=== PATIENT | female | born 1975 | race Caucasian/White ===

== ENCOUNTER 2016-12-05 01:08 | Emergency (ER) | payer SELFPAY ==
[2016-12-05] MEDS ORDERED: Diphtheria,Pertussis(Acell),Tetanus Vaccine 0.5 ML Syringe IM ONE (01:32)
[2016-12-05] MEDS ORDERED: Lidocaine 1% with EPINEPHrine 1:100,000 20 ML MDV INJECT ONE (01:36)
--- NOTE | 2016-12-05 01:36 | EDM.PDOC ---
ED HPI GENERAL MEDICAL PROBLEM - General Chief Complaint: Laceration Stated Complaint: "I cut my arm" Time Seen by Provider: 12/05/16 01:32 Source of Information: Reports: Patient History Limitations: Reports: No Limitations - History of Present Illness INITIAL COMMENTS - FREE TEXT/NARRATIVE: This patient is a 41 year old female that presents to the ER. Patient reports that she was closing window when her her left arm went through the window. She reprots the glass shattered and glass cut her left forearm. The patient denies any other injury. Patient has a laceration to the left forearm. The patient pulses +2, cap refill <2 sec, sensory/motor function intact. Neurovascular intact. I have ordered an xray to check for FBs. I will repair. 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) Severity: Mild Improves with: Reports: None Worsens with: Reports: None Associated Symptoms: Denies: Confusion, Chest Pain, Cough, cough w sputum, Diaphoresis, Fever/Chills, Headaches, Loss of Appetite, Malaise, Nausea/Vomiting , Rash, Seizure, Shortness of Breath, Syncope, Weakness - Related Data Allergies Allergy/AdvReac Type Severity Reaction Status Date / Time Penicillins Allergy Intermediate Hives Verified 12/05/16 01:25 Home Meds: Home Meds Venlafaxine [Effexor] 300 mg PO BID 05/05/14 [History] Albuterol [Proventil Neb Soln] 0.63 mg NEB Q4HRRT PRN 08/04/16 [History] Past Medical History - Past Health History Medical/Surgical History: Denies Medical/Surgical History Psychiatric History: Reports: Depression - Past Surgical History HEENT Surgical History: Reports: Other (See Below) Female Surgical History: Reports: Section Social & Family History - Family History Cardiac: Reports: Hypertension - Tobacco Use Smoking Status *Q: Current Every Day Smoker Years of Tobacco use: 15 Packs/Tins Daily: 0.5 Used Tobacco, but Quit: No - Alcohol Use Days Per Week of Alcohol Use: 2 - Recreational Drug Use Recreational Drug Use: No - Living Situation & Occupation Living situation: Reports: with Family ED ROS GENERAL - Review of Systems Review Of Systems: See Below Constitutional: Reports: No Symptoms HEENT: Reports: No Symptoms Respiratory: Reports: No Symptoms Cardiovascular: Reports: No Symptoms Endocrine: Reports: No Symptoms GI/Abdominal: Reports: No Symptoms : Reports: No Symptoms Musculoskeletal: Reports: No Symptoms Skin: Reports: Wound (laceration left forearm) Neurological: Reports: No Symptoms Psychiatric: Reports: No Symptoms Hematologic/Lymphatic: Reports: No Symptoms Immunologic: Reports: No Symptoms ED EXAM, SKIN/RASH Exam: See Below Exam Limited By: No Limitations General Appearance: Alert, WD/WN, No Apparent Distress Nose: Normal Inspection Head: Atraumatic, Normocephalic Cardiovascular: Normal Peripheral Pulses Peripheral Pulses: 2+: Radial (L), Radial (R) Extremities: Normal Range of Motion, No Pedal Edema, Normal Capillary Refill, Other (mild tenderness left forearm at laceration site.) Neurological: Alert, Oriented Psychiatric: Normal Affect, Normal Mood Skin: Warm, Dry, Normal Color, No Rash, Wound/Incision (laceration left forearm bleeding controlled. ) Location, Skin: Upper Extremity, Left ED SKIN PROCEDURES - Laceration/Wound Repair Left Distal Arm Lac/wound length in cm: 5 Appearance: subcutaneous Distal NVT: neuro & vascular intact, no tendon injury Local anesthesia - Lidocaine (Xylocaine): 1% with epi Local anesthetic volume: 5cc Skin prep: chlorhexidine (hibiciens) Saline irrigation (cc's): 40 Exploration/Debridement/Repair: wound explored, in a bloodless field, explored to base, no foreign material found Closed with: sutures Suture size: 4-0 # of sutures: 9 Suture type: silk Tetanus status addressed: Yes Complications: No Course - Vital Signs Last Recorded V/S: Last Vital Signs Temp 97.7 F 12/05/16 02:11 Pulse 88 12/05/16 02:11 Resp 20 12/05/16 02:11 BP 135/74 12/05/16 02:11 Pulse Ox 95 12/05/16 02:11 - Orders/Labs/Meds Orders: Active Orders 24 hr Category Date Time Status Vaccines to be Administered [RC] PER UNIT ROUTINE Care 12/05/16 01:32 Active Forearm 2V Lt [CR] Stat Exams 12/05/16 01:32 Taken Meds: Medications Discontinued Medications Generic Name Dose Route Start Last Admin Trade Name Freq PRN Reason Stop Dose Admin Diphtheria/Tetanus/Acell Pertussis 0.5 ml 12/05/16 01:32 12/05/16 01:59 Adacel IM 12/05/16 01:33 0.5 ml .ONCE ONE Administration Lidocaine/Epinephrine 20 ml 12/05/16 01:36 12/05/16 01:59 Xylocaine 1% With Epinephrine 1:100,000 INJECT 12/05/16 01:37 20 ml ONETIME ONE Administration - Radiology Interpretation Free Text/Narrative:: Right Forearm: No radiopaque FB seen. No fx, no dislocation Departure - Departure Time of Disposition: 02:00 Disposition: Home, Self-Care 01 Condition: good Clinical Impression: Laceration - Discharge Information Instructions: Laceration Care, Adult, [id number] Forms: ED Department Discharge Additional Instructions: Followup with your primary care provider in 7 for days for wound recheck and removal of stitches Return to the ER for worsening of condition or any emergent concerns such as redness, heat, drainage, fever, infection Wash the area gently with soap and water, rinse, pat yudelka. Keep clean - My Orders Last 24 Hours: My Active Orders 12/05/16 01:32 Vaccines to be Administered [RC] PER UNIT ROUTINE Forearm 2V Lt [CR] Stat - Assessment/Plan Last 24 Hours: My Active Orders 12/05/16 01:32 Vaccines to be Administered [RC] PER UNIT ROUTINE Forearm 2V Lt [CR] Stat Plan: PLEASE SEE RN NOTE FOR PFSH.
[2016-12-05 02:13] VITALS: BP 135/74
== END 2016-12-05 02:30 | disposition home or self-care (01) ==
LOC: CC.ED 01:08
DX: S51.812A Laceration without foreign body of left forearm, initial encounter (principal); F32.9 Major depressive disorder, single episode, unspecified; F17.210 Nicotine dependence, cigarettes, uncomplicated; W25.XXXA Contact with sharp glass, initial encounter; Z88.0 Allergy status to penicillin
CPT/HCPCS: 12002; 73090-LT; 90471; 90715; 99283

== ENCOUNTER 2017-04-12 18:50 | Emergency (ER) | payer SELFPAY ==
[2017-04-12 19:02] VITALS: BP 131/88
== END 2017-04-12 19:00 | disposition left against medical advice (07) ==
LOC: CC.ED 18:50
DX: Z53.21 Procedure and treatment not carried out due to patient leaving prior to being seen by health care provider (principal)

== ENCOUNTER 2017-05-27 23:59 | Emergency (ER) | payer SELFPAY ==
[2017-05-28 00:03] VITALS: BP 143/90
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
[2017-05-28] MEDS ORDERED: Ibuprofen 200 MG Tab PO ONE (00:59)
== END 2017-05-28 01:10 | disposition home or self-care (01) ==
LOC: CC.ED 23:59
DX: S06.0X0A Concussion without loss of consciousness, initial encounter (principal); S00.03XA Contusion of scalp, initial encounter; F32.9 Major depressive disorder, single episode, unspecified; F17.210 Nicotine dependence, cigarettes, uncomplicated; Z88.0 Allergy status to penicillin; Y04.2XXA Assault by strike against or bumped into by another person, initial encounter; Y92.89 Other specified places as the place of occurrence of the external cause
CPT/HCPCS: 70450; 99283; A9270

== ENCOUNTER 2017-09-06 19:50 | Emergency (ER) | payer SELFPAY ==
[2017-09-06 20:03] VITALS: BP 129/92
--- NOTE | 2017-09-06 20:10 | EDM.PDOC ---
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 Patient reports she was seen in clinic earlier this afternoon. She reports having a urine done that shows UTI. Patient reports that she has had dysuria for 2 days. Patient reports she has vaginal burning and swelling sensation. She reports last time she had her UTI, she got herpes outbreak. She reports it feels like herpes outbreak is starting. She denies current sores, discharge, bleeding. Denies catalan, dizziness, n, v, d, f, abd pain, back pain, cva pain, pelvic pain. Onset Date: 09/04/17 Duration: Day(s): (2) Quality: Reports: Burning Severity: Mild Improves with: Reports: None Worsens with: Reports: None Associated Symptoms: Reports: No Other Symptoms. Denies: Confusion, Chest Pain , Cough, cough w sputum, Diaphoresis, Fever/Chills, Headaches, Loss of Appetite , Malaise, Nausea/Vomiting, Rash, Seizure, Shortness of Breath, Syncope, Weakness Vaginal Pain Score (Numeric/FACES): 5 - Related Data Allergies Allergy/AdvReac Type Severity Reaction Status Date / Time Penicillins Allergy Intermediate Hives Verified 09/06/17 19:52 Home Meds: Home Meds Venlafaxine [Effexor] 300 mg PO DAILY 05/05/14 [History] Albuterol [Proventil Neb Soln] 0.63 mg NEB Q4HRRT PRN 08/04/16 [History] buPROPion [Wellbutrin] 75 mg PO BID 05/28/17 [History] Levonorgestrel [Mirena] 1 unit IMPLANT ASDIRECTED 09/06/17 [History] Sulfamethoxazole/Trimethoprim [Bactrim Ds Tablet] 1 tab PO BID 09/06/17 [History ] Past Medical History - Past Health History Medical/Surgical History: Denies Medical/Surgical History Neurological History: Reports: Concussion Psychiatric History: Reports: Depression - Past Surgical History HEENT Surgical History: Reports: Other (See Below) Female Surgical History: Reports: Section Social & Family History - Family History Cardiac: Reports: Hypertension - Tobacco Use Smoking Status *Q: Current Every Day Smoker Years of Tobacco use: 20 Packs/Tins Daily: 0.5 Used Tobacco, but Quit: No - Alcohol Use Days Per Week of Alcohol Use: 2 - Recreational Drug Use Recreational Drug Use: No - Living Situation & Occupation Living situation: Reports: with Family ED ROS GENERAL - Review of Systems Review Of Systems: See Below Constitutional: Reports: No Symptoms HEENT: Reports: No Symptoms Respiratory: Reports: No Symptoms Cardiovascular: Reports: No Symptoms Endocrine: Reports: No Symptoms GI/Abdominal: Reports: No Symptoms : Reports: Dysuria, Pain (vaginal burning). Denies: Flank Pain Musculoskeletal: Reports: No Symptoms Skin: Reports: No Symptoms Neurological: Reports: No Symptoms Psychiatric: Reports: No Symptoms Hematologic/Lymphatic: Reports: No Symptoms Immunologic: Reports: No Symptoms ED EXAM, GI/ABD - Physical Exam Exam: See Below Exam Limited By: No Limitations General Appearance: Alert, WD/WN, No Apparent Distress Eyes: Bilateral: Normal Appearance Respiratory/Chest: No Respiratory Distress, Lungs Clear, Normal Breath Sounds, No Accessory Muscle Use Cardiovascular: Normal Peripheral Pulses, Regular Rate, Rhythm, No Edema, No Gallop, No JVD, No Murmur, No Rub GI/Abdominal Exam: Normal Bowel Sounds, Soft, Non-Tender, No Organomegaly, No Distention, No Abnormal Bruit, No Mass, Pelvis Stable (Female) Exam: Deferred Rectal (Female) Exam: Deferred Back Exam: Normal Inspection, Full Range of Motion. No: CVA Tenderness (L), CVA Tenderness (R) Extremities: Normal Inspection, Normal Capillary Refill Neurological: Alert, Oriented Psychiatric: Normal Affect, Normal Mood Skin Exam: Warm, Dry, Intact, Normal Color, No Rash Lymphatic: No Adenopathy Course - Vital Signs Last Recorded V/S: Last Vital Signs Temp 97.2 F 09/06/17 19:54 Pulse 113 H 09/06/17 20:02 Resp 16 09/06/17 19:54 BP 129/92 H 09/06/17 20:02 Pulse Ox 97 09/06/17 19:54 Departure - Departure Time of Disposition: 20:09 Disposition: Home, Self-Care 01 Condition: Good Clinical Impression: Herpes genitalis in women - Discharge Information Instructions: Genital Herpes Referrals: Nella Burgos PA [Primary Care Provider] - Additional Instructions: Followup with your primary care provider Return to the ER for worsening of condition or any emergent concerns Increase fluids Acylcovir 400mg 1 pill three times a day for 10 days #30 no refill - Assessment/Plan Plan: PLEASE SEE RN NOTE FOR PFSH.
[2017-09-06] MEDS ORDERED: Acyclovir 200 MG Cap PO ONE (20:14)
== END 2017-09-06 20:25 | disposition home or self-care (01) ==
LOC: CC.ED 19:50
DX: A60.00 Herpesviral infection of urogenital system, unspecified (principal); F17.210 Nicotine dependence, cigarettes, uncomplicated; Z88.0 Allergy status to penicillin; Z79.899 Other long term (current) drug therapy
CPT/HCPCS: 99282; A9270

== ENCOUNTER 2017-11-09 17:32 | Emergency (ER) | payer SELFPAY ==
[2017-11-09] MEDS ORDERED: Clindamycin HCl 150 MG Cap PO ONE (17:33)
[2017-11-09 17:37] VITALS: BP 159/77
--- NOTE | 2017-11-09 17:38 | EDM.PDOC ---
ED HPI GENERAL MEDICAL PROBLEM - General Chief Complaint: ENT Problem Stated Complaint: toothache Time Seen by Provider: 11/09/17 17:38 Source of Information: Reports: Patient History Limitations: Reports: No Limitations - History of Present Illness INITIAL COMMENTS - FREE TEXT/NARRATIVE: This patient is a 42 year old female that presents to the ER. Patient reports that started yesterday she had worsening of right lower frontal dental pain. Patient reports she is scheduled to have the tooth extracted on . Patient denies catalan, dizziness, n, v, d, f. No trismus. Stable. Onset Date: 11/08/17 Duration: Day(s): (1) Quality: Reports: Ache Severity: Mild Improves with: Reports: None Worsens with: Reports: None Associated Symptoms: Reports: No Other Symptoms. 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 Right Lower Oral/Mouth Pain Score (Numeric/FACES): 5 - Related Data Allergies Allergy/AdvReac Type Severity Reaction Status Date / Time Penicillins Allergy Intermediate Hives Verified 11/09/17 17:37 Home Meds: Home Meds Venlafaxine [Effexor] 300 mg PO DAILY 05/05/14 [History] Albuterol [Proventil Neb Soln] 0.63 mg NEB Q4HRRT PRN 08/04/16 [History] buPROPion [Wellbutrin] 75 mg PO BID 05/28/17 [History] Levonorgestrel [Mirena] 1 unit IMPLANT ASDIRECTED 09/06/17 [History] Past Medical History - Past Health History Medical/Surgical History: Denies Medical/Surgical History Respiratory History: Reports: Asthma Gastrointestinal History: Reports: GERD 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 History: Reports: STD, UTI, Recurrent, Other (See Below) Other 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 History: herpes 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: Musculoskeletal History: Reports: Fracture, Other (See Below) Other Musculoskeletal History: right orbital fracture Neurological History: Reports: Concussion Psychiatric History: Reports: Depression - Infectious Disease History Infectious Disease History: Reports: Chicken Pox - Past Surgical History HEENT Surgical History: Reports: Other (See Below) Female Surgical History: Reports: Section Social & Family History - Family History Family Medical History: Noncontributory Cardiac: Reports: Hypertension - Tobacco Use Smoking Status *Q: Current Every Day Smoker Years of Tobacco use: 20 Packs/Tins Daily: 0.5 Used Tobacco, but Quit: No - Alcohol Use Days Per Week of Alcohol Use: 2 - Recreational Drug Use Recreational Drug Use: No - Living Situation & Occupation Living situation: Reports: with Family ED ROS ENT - Review of Systems Review Of Systems: See Below Constitutional: Reports: No Symptoms HEENT: Reports: Dental Pain (right lower front) Respiratory: Reports: No Symptoms Cardiovascular: Reports: No Symptoms Endocrine: Reports: No Symptoms GI/Abdominal: Reports: No Symptoms : Reports: No Symptoms Musculoskeletal: Reports: No Symptoms Skin: Reports: No Symptoms Neurological: Reports: No Symptoms Psychiatric: Reports: No Symptoms Hematologic/Lymphatic: Reports: No Symptoms Immunologic: Reports: No Symptoms ED EXAM, ENT - Physical Exam Exam: See Below Exam Limited By: No Limitations General Appearance: Alert, WD/WN, No Apparent Distress Eye Exam: Bilateral Eye: Normal Inspection Ears: Normal External Exam, Normal Canal, Hearing Grossly Normal, Normal TMs Nose: Normal Inspection, Normal Mucousa, No Blood Mouth/Throat: Normal Gums, Normal Lips, Normal Oropharynx, Dental Pain (right lower front), Dental Tenderness (right lower front), Other (No facial swelling. No erry). No: Dental Abcess, Dental Trauma, Drooling, Dry Mucous Membrane, Gum Swelling, Hoarse Voice, Lip Swelling, Lip Ulcers, Muffled Voice, Oral Ulcers, Perioral Cyanosis, Pharyngeal Erythema, Throat Pain, Throat Swelling, Tongue Swelling, Tonsillar Erythema, Tonsillar Exudates, Tonsillar Swelling, Trismus, Uvular Deviation, Uvular Edema Head: Atraumatic, Normocephalic Neck: Normal Inspection, Supple, Non-Tender, Full Range of Motion Respiratory/Chest: No Respiratory Distress, Lungs Clear, Normal Breath Sounds, No Accessory Muscle Use Cardiovascular: Normal Peripheral Pulses, Regular Rate, Rhythm, No Edema, No Gallop, No JVD, No Murmur, No Rub (Female) Exam: Deferred Rectal (Female) Exam: Deferred Extremities: Normal Inspection Neurological: Alert, Oriented Psychiatric: Normal Affect, Normal Mood Skin: Warm, Dry, Intact, Normal Color, No Rash Lymphatic: No Adenopathy Course - Vital Signs Last Recorded V/S: Last Vital Signs Temp 98.5 F 11/09/17 17:33 Pulse 110 H 11/09/17 17:33 Resp 16 11/09/17 17:33 BP 159/77 H 11/09/17 17:33 Pulse Ox 97 11/09/17 17:33 - Orders/Labs/Meds Meds: Medications Discontinued Medications Generic Name Dose Route Start Last Admin Trade Name German PRN Reason Stop Dose Admin Clindamycin HCl 2 packet 11/09/17 17:42 Take Home: Clindamycin Hcl 150 Mg, 6 Cap Pack PO 11/09/17 17:43 ONETIME ONE Departure - Departure Time of Disposition: 17:43 Disposition: Home, Self-Care 01 Condition: Good Clinical Impression: Pain due to dental caries - Discharge Information Instructions: Dental Caries, Pediatric Referrals: Nella Burgos PA [Primary Care Provider] - Forms: ED Department Discharge Additional Instructions: Followup with dentist as scheduled Return to the ER for worsening of condition or any emergent concerns Ice to the area Clindamycin 150mg 2 pills four times a day #12 take home. Then... Clindamycin 300mg 1 pill four times a day for 5 days #20 no refill - Assessment/Plan Plan: PLEASE SEE RN NOTE FOR PFSH.
[2017-11-09] MEDS: Take Home: Clindamycin HCl 150 MG Cap, 6 Cap Pack PO ONE (17:57)
== END 2017-11-09 18:00 | disposition home or self-care (01) ==
LOC: CC.ED 17:32
DX: K02.9 Dental caries, unspecified (principal); F17.210 Nicotine dependence, cigarettes, uncomplicated; Z88.0 Allergy status to penicillin; Z79.899 Other long term (current) drug therapy
CPT/HCPCS: 99282; A9270

== ENCOUNTER 2018-04-20 02:26 | Emergency (ER) | payer BC ==
[2018-04-20] MEDS ORDERED: Sodium Chloride 0.9% 1,000 ML IV ONE ×2 (02:39→03:49)
--- NOTE | 2018-04-20 02:40 | EDM.PDOC ---
ED HPI GENERAL MEDICAL PROBLEM - General Chief Complaint: General Stated Complaint: Abdominal cramping, shortness of breath Time Seen by Provider: 04/20/18 02:30 Source of Information: Reports: Patient History Limitations: Reports: Intoxication - History of Present Illness INITIAL COMMENTS - FREE TEXT/NARRATIVE: Patient reports she had been experiencing mild, intermittent abdominal pain for approx one month. Tonight the patient went drinking with a friend who convinced the patient to take a test (at 0200) which was inconclusive. This caused the patient to become anxious as she was concerned about potential damage due to her intoxication which. This anxiety caused her to feel short of breath at which point she went to the ER. Onset: Today Location: Reports: Abdomen Quality: Reports: Ache Severity: Mild Improves with: Reports: None Worsens with: Reports: None Associated Symptoms: Reports: Other (diarrhea). Denies: Diaphoresis, Fever/ Chills, Nausea/Vomiting Lower Abdominal Pain Score (Numeric/FACES): 5 - Related Data Allergies Allergy/AdvReac Type Severity Reaction Status Date / Time Penicillins Allergy Intermediate Hives Verified 04/20/18 02:35 Home Meds: Home Meds Venlafaxine [Effexor] 300 mg PO DAILY 05/05/14 [History] Albuterol [Proventil Neb Soln] 0.63 mg NEB Q4HRRT PRN 08/04/16 [History] buPROPion [Wellbutrin SR] 300 mg PO DAILY 04/20/18 [History] Past Medical History - Past Health History Medical/Surgical History: Denies Medical/Surgical History HEENT History: Reports: Other (See Below) Other HEENT History: "bad teeth" has dental extraction scheduled for this Respiratory History: Reports: Asthma Gastrointestinal History: Reports: GERD 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 History: Reports: STD, UTI, Recurrent, Other (See Below) Other 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 History: herpes 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: Musculoskeletal History: Reports: Fracture, Other (See Below) Other Musculoskeletal History: right orbital fracture Neurological History: Reports: Concussion Psychiatric History: Reports: Depression - Infectious Disease History Infectious Disease History: Reports: Chicken Pox - Past Surgical History HEENT Surgical History: Reports: Other (See Below) Female Surgical History: Reports: Section Social & Family History - Family History Family Medical History: Noncontributory Cardiac: Reports: Hypertension - Living Situation & Occupation Living situation: Reports: with Family ED ROS GENERAL - Review of Systems Review Of Systems: See Below Constitutional: Denies: Fever, Chills Respiratory: Reports: Shortness of Breath Cardiovascular: Denies: Chest Pain, Syncope GI/Abdominal: Reports: Abdominal Pain, Diarrhea. Denies: Black Stool, Bloody Stool, Melena, Nausea, Vomiting : Denies: Discharge, Dysuria, Flank Pain Musculoskeletal: Denies: Neck Pain Psychiatric: Reports: Anxiety ED EXAM, GENERAL - Physical Exam Exam: See Below Exam Limited By: Other (patient is acutely intoxicated, requires multiple prompts to answer basic questions; ie "do you have burning with urination?" to which the patient reports "I've had a bunch of UTI's in the past" etc.) General Appearance: Alert, WD/WN, No Apparent Distress, Anxious Eye Exam: Bilateral Eye: Nystagmus, Other (glassy, bloodshot) Ears: Hearing Grossly Normal Throat/Mouth: Normal Oropharynx Head: Atraumatic Neck: Non-Tender, Full Range of Motion Respiratory/Chest: No Respiratory Distress, Lungs Clear, No Accessory Muscle Use , Chest Non-Tender Cardiovascular: Normal Peripheral Pulses, No Edema, Tachycardia Peripheral Pulses: 2+: Radial (L), Radial (R) GI/Abdominal: Normal Bowel Sounds, Soft, No Distention, Other (TTP RLQ, LLQ, suprapubic) Extremities: Normal Inspection, Normal Capillary Refill Neurological: Alert, Other (unable to fully comply with neuro exam. noted biletaral nystagmus. speech is slightly slurred. requires multple prompts and redirects to answer simple questions.) Psychiatric: Anxious, Other (slurred speech) Skin Exam: Warm, Dry, Intact Lymphatic: No Adenopathy Course - Vital Signs Last Recorded V/S: Last Vital Signs Temp 37.0 C 04/20/18 06:45 Pulse 107 H 04/20/18 06:45 Resp 18 04/20/18 06:45 BP 115/58 L 04/20/18 06:45 Pulse Ox 97 04/20/18 06:45 - Orders/Labs/Meds Orders: Active Orders 24 hr Category Date Time Status ETHANOL (MEDICAL) [REF] Stat Lab 04/20/18 02:45 Received Labs: Laboratory Tests 04/20/18 04/20/1818 Range/Units 02:37 02:45 02:45 WBC 11.0 H (5.0-10.0) 10^3/uL RBC 3.94 L (4.00-5.50) 10^6/uL Hgb 12.5 (12.0-16.0) g/dL Hct 37.1 (37.0-47.0) % MCV 94.2 H (82.0-94.0) fL MCH 31.7 (27.0-32.0) pg MCHC 33.7 (33.0-38.0) g/dL RDW Coeff of Elijah 11.9 (11.0-15.0) % Plt Count 394 (150-400) 10^3/uL Neut % (Auto) 54.2 (35-85) % Lymph % (Auto) 35.4 (10-55) % [place] % (Auto) 7.7 (0-16) % Eos % (Auto) 2.4 (0-5) % Baso % (Auto) 0.3 (0-3) % Neut # (Auto) 5.95 (1.80-7.00) 10^3/uL Lymph # (Auto) 3.88 (1.00-4.80) 10^3/uL [place] # (Auto) 0.84 H (0.00-0.80) 10^3/uL Eos # (Auto) 0.26 (0.00-0.45) 10^3/uL Baso # (Auto) 0.03 10^3/uL Sodium 142 (136-145) mEq/L Potassium 3.5 (3.5-5.0) mEq/L Chloride 108 H (98-106) mEq/L Carbon Dioxide 22 (21-32) mmol/L BUN 8 (7-18) mg/dL Creatinine 0.7 (0.6-1.0) mg/dL Est Cr Clr Drug Dosing 99.01 mL/min Estimated GFR (MDRD) > 60 (>=60) mL/min Glucose 107 H (75-99) mg/dL Calcium 8.3 L (8.4-10.1) mg/dL HCG, Qual Urine Color Light yellow (YELLOW) Urine Appearance Clear (CLEAR) Urine pH 6.0 (4.5-8.0) Ur Specific [place] <= 1.005 (1.003-1.020) Urine Protein Negative (NEGATIVE) mg/dL Urine Glucose (UA) Negative (NEGATIVE) mg/dL Urine Ketones Negative (NEGATIVE) mg/dL Urine Occult Blood Trace-intact H (NEGATIVE) Urine Nitrite Negative (NEGATIVE) Urine Bilirubin Negative (NEGATIVE) Urine Urobilinogen 0.2 (0.2-1.0) EU/dL Ur Leukocyte Esterase Negative (NEGATIVE) Urine RBC Not seen (0-5) /HPF Urine WBC Not seen (0-5) /HPF Ur Epithelial Cells Occasional H (NOT SEEN) /HPF 04/20/18 Range/Units 02:45 WBC (5.0-10.0) 10^3/uL RBC (4.00-5.50) 10^6/uL Hgb (12.0-16.0) g/dL Hct (37.0-47.0) % MCV (82.0-94.0) fL MCH (27.0-32.0) pg MCHC (33.0-38.0) g/dL RDW Coeff of Elijah (11.0-15.0) % Plt Count (150-400) 10^3/uL Neut % (Auto) (35-85) % Lymph % (Auto) (10-55) % [place] % (Auto) (0-16) % Eos % (Auto) (0-5) % Baso % (Auto) (0-3) % Neut # (Auto) (1.80-7.00) 10^3/uL Lymph # (Auto) (1.00-4.80) 10^3/uL [place] # (Auto) (0.00-0.80) 10^3/uL Eos # (Auto) (0.00-0.45) 10^3/uL Baso # (Auto) 10^3/uL Sodium (136-145) mEq/L Potassium (3.5-5.0) mEq/L Chloride (98-106) mEq/L Carbon Dioxide (21-32) mmol/L BUN (7-18) mg/dL Creatinine (0.6-1.0) mg/dL Est Cr Clr Drug Dosing mL/min Estimated GFR (MDRD) (>=60) mL/min Glucose (75-99) mg/dL Calcium (8.4-10.1) mg/dL HCG, Qual Positive Urine Color (YELLOW) Urine Appearance (CLEAR) Urine pH (4.5-8.0) Ur Specific [place] (1.003-1.020) Urine Protein (NEGATIVE) mg/dL Urine Glucose (UA) (NEGATIVE) mg/dL Urine Ketones (NEGATIVE) mg/dL Urine Occult Blood (NEGATIVE) Urine Nitrite (NEGATIVE) Urine Bilirubin (NEGATIVE) Urine Urobilinogen (0.2-1.0) EU/dL Ur Leukocyte Esterase (NEGATIVE) Urine RBC (0-5) /HPF Urine WBC (0-5) /HPF Ur Epithelial Cells (NOT SEEN) /HPF Meds: Medications Discontinued Medications Generic Name Dose Route Start Last Admin Trade Name Freq PRN Reason Stop Dose Admin Sodium Chloride 1,000 mls @ 1,000 mls/hr 04/20/18 02:39 04/20/18 03:00 Normal Saline IV 04/20/18 03:38 1,000 mls/hr .BOLUS ONE Administration Sodium Chloride Confirm 04/20/18 02:42 04/20/18 03:09 Normal Saline Administered 04/20/18 02:43 Not Given Dose 1,000 mls @ as directed .ROUTE .STK-MED ONE Sodium Chloride 1,000 mls @ 999 mls/hr 04/20/18 03:49 04/20/18 03:50 Normal Saline IV 04/20/18 04:49 999 mls/hr .BOLUS ONE Administration Departure - Departure Time of Disposition: 03:19 Disposition: Home, Self-Care 01 Condition: Good Clinical Impression: Acute alcohol intoxication, - Discharge Information *PRESCRIPTION DRUG MONITORING PROGRAM REVIEWED*: Not Applicable *COPY OF PRESCRIPTION DRUG MONITORING REPORT IN PATIENT MELL: Not Applicable Instructions: Alcohol Intoxication, [id number]-[id number], First Trimester of , [id number]-[id number], Preventing Defects During , Adult Referrals: Nella Burgos PA [Primary Care Provider] - Forms: ED Department Discharge - My Orders Last 24 Hours: My Active Orders 04/20/18 02:45 ETHANOL (MEDICAL) [REF] Stat - Assessment/Plan Last 24 Hours: My Active Orders 04/20/18 02:45 ETHANOL (MEDICAL) [REF] Stat Assessment:: alcohol intoxication patient's serum HCG returns positive. her heart rate was initially quite elevated. given 2L IV NS here in ED and time to rest. this improved her HR to near normal limits. she reports her abdominal pain spontaneously resolved after "burping". advised the patient to rest, hydrate, avoid alcohol or drugs, fu with PCP in 1 day, go to ER if change or worse. patient reports understanding and agreement with plan. clinically sober at time of DC. DC home stable.
[2018-04-20] MEDS ORDERED: Sodium Chloride 0.9% 1,000 ML ONE (02:42)
[2018-04-20 03:00] LABS: CHLORIDE,CL 108 mEq/L (98-106); SODIUM,NA 142 mEq/L (136-145)
[2018-04-20 06:47] VITALS: BP 115/58
== END 2018-04-20 08:43 | disposition home or self-care (01) ==
LOC: CC.ED 02:26
DX: F10.129 Alcohol abuse with intoxication, unspecified (principal); Z79.899 Other long term (current) drug therapy; Z88.0 Allergy status to penicillin
CPT/HCPCS: 36415; 80048; 81001; 84703; 85025; 96360; 96361; 99284; G0480; J7030

== ENCOUNTER 2021-04-04 12:35 | Emergency (ER) | payer OTHER ==
[2021-04-04 12:53] VITALS: BP 150/90; PULSE 113
[2021-04-04] MEDS ORDERED: Ketorolac 60 MG/2 ML SDV IM ONE (13:04)
--- NOTE | 2021-04-04 13:09 | EDM.PDOC ---
ED HPI GENERAL MEDICAL PROBLEM - General Chief Complaint: Flank Pain Stated Complaint: R BACK AND ABD PAIN Time Seen by Provider: 04/04/21 13:00 Source of Information: Reports: Patient History Limitations: Reports: No Limitations - History of Present Illness INITIAL COMMENTS - FREE TEXT/NARRATIVE: Camille is a 46 yo female who presents to the ED with complaints of right flank pain. States the pain does radiate around to the abdomen. Initially symptoms started Saturday and thought maybe show pulled a muscle in her back. States it was on and off up until today, which is now constant. She states up until today she didn't have the radiating pain either. Currently rates the pain a 5 out of 10, stating it feels like when she was having gallbladder attacks. However, did have her gallbladder removed. LMP was 2 weeks ago, denies feeling like it is an UTI. No burning with urination. Denies any hematuria. Bowel movements have been normal. She did try ibuprofen with no relief. Right Flank Pain Score (Numeric/FACES): 5 - Related Data Allergies Allergy/AdvReac Type Severity Reaction Status Date / Time Penicillins Allergy Intermediate Hives Verified 04/04/21 12:41 Home Meds: Home Meds Venlafaxine [Effexor] 300 mg PO DAILY 05/05/14 [History] Albuterol [Proventil Neb Soln] 0.63 mg NEB Q4HRRT PRN 08/04/16 [History] buPROPion [Wellbutrin SR] 300 mg PO DAILY 04/20/18 [History] Minocycline [Minocin] 1 tab PO DAILY 04/04/21 [History] Past Medical History - Past Health History Medical/Surgical History: Denies Medical/Surgical History HEENT History: Reports: Other (See Below) Other HEENT History: "bad teeth" has dental extraction scheduled for this Respiratory History: Reports: Asthma Gastrointestinal History: Reports: GERD 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 History: Reports: STD, UTI, Recurrent, Other (See Below) Other 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 History: herpes 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: Musculoskeletal History: Reports: Fracture, Other (See Below) Other Musculoskeletal History: right orbital fracture Neurological History: Reports: Concussion Psychiatric History: Reports: Depression - Infectious Disease History Infectious Disease History: Reports: Chicken Pox - Past Surgical History HEENT Surgical History: Reports: Other (See Below) Other HEENT Surgeries/Procedures: orbital fracture repair Respiratory Surgical History: Reports: None GI Surgical History: Reports: Cholecystectomy Female Surgical History: Reports: Section Neurological Surgical History: Reports: None Musculoskeletal Surgical History: Reports: None Social & Family History - Family History Family Medical History: No Pertinent Family History Cardiac: Reports: Hypertension - Tobacco Use Tobacco Use Status *Q: Current Every Day Tobacco User Years of Tobacco use: 20 Packs/Tins Daily: 0.5 - Caffeine Use Caffeine Use: Reports: Coffee, Soda - Recreational Drug Use Recreational Drug Use: No - Living Situation & Occupation Living situation: Reports: with Family ED ROS GENERAL - Review of Systems Review Of Systems: See Below Constitutional: Denies: Fever, Chills, Fatigue, Decreased Appetite HEENT: Reports: No Symptoms Respiratory: Reports: No Symptoms Cardiovascular: Reports: No Symptoms GI/Abdominal: Reports: Abdominal Pain. Denies: Bloody Stool, Constipation, Diarrhea, Nausea, Vomiting : Reports: Flank Pain. Denies: Discharge, Dysuria, Frequency, Hematuria, Incontinence, Irregular Menses, Urgency Musculoskeletal: Reports: Back Pain (Right mid to low back. ). Denies: Leg Pain Skin: Reports: No Symptoms Neurological: Reports: No Symptoms Psychiatric: Reports: No Symptoms ED EXAM, RENAL/ - Physical Exam Exam: See Below Exam Limited By: No Limitations General Appearance: Alert, WD/WN, Mild Distress Ears: Normal External Exam, Hearing Grossly Normal Nose: Normal Inspection Throat/Mouth: Normal Inspection, Normal Lips, Normal Voice, No Airway Compromise Head: Atraumatic, Normocephalic Neck: Normal Inspection Respiratory/Chest: No Respiratory Distress, Lungs Clear, Normal Breath Sounds, No Accessory Muscle Use Cardiovascular: Regular Rate, Rhythm, No Murmur GI/Abdominal: Normal Bowel Sounds, Soft, No Organomegaly, No Distention, Tender (mild RUQ). No: Distended, Guarding, Hernia, Hepatomegaly, Splenomegaly Back Exam: CVA Tenderness (R). No: CVA Tenderness (L), Decreased Range of Motion (Increased discomfort with right lateral flexion and right rotation. ), Paraspinal Tenderness, Vertebral Tenderness Extremities: Normal Inspection, No Pedal Edema Neurological: Alert, Oriented, Normal Cognition, No Motor/Sensory Deficits Psychiatric: Normal Affect, Normal Mood Skin Exam: Warm, Dry, Intact, Normal Color, No Rash Course - Vital Signs Last Recorded V/S: Last Vital Signs Temp 98 F 04/04/21 12:40 Pulse 113 H 04/04/21 12:40 Resp 16 04/04/21 12:40 BP 150/90 H 04/04/21 12:40 Pulse Ox 96 04/04/21 12:40 - Orders/Labs/Meds Orders: Active Orders 24 hr Category Date Time Status Abdomen Pelvis wo Cont [CT] Stat Exams 04/04/21 13:26 Taken AMYLASE [CHEM] Stat Lab 04/04/21 15:17 Ordered LIPASE [CHEM] Stat Lab 04/04/21 15:17 Ordered Labs: Laboratory Tests 04/04/21 04/04/21 04/04/21 Range/Units 12:52 13:02 13:02 WBC 9.3 (4.0-11.0) 10^3/uL RBC 4.22 (4.00-5.50) x10^6/uL Hgb 12.8 (12.0-16.0) g/dL Hct 38.2 (37.0-47.0) % MCV 90.5 (83.0-97.0) fL MCH 30.3 (27.0-32.0) pg MCHC 33.5 (32.0-36.0) g/dL RDW Coeff of Elijah 11.9 (11.0-15.0) % Plt Count 390 (150-400) 10^3/uL Immature Gran % (Auto) 0.2 (0.0-4.9) % Neut % (Auto) 60.9 (41-71) % Lymph % (Auto) 28.5 (24-44) % [place] % (Auto) 8.6 (0-10) % Eos % (Auto) 1.0 (0-6) % Baso % (Auto) 0.8 (0-1) % Neut # (Auto) 5.68 (1.80-8.00) x10^3/uL Lymph # (Auto) 2.66 (0.60-5.00) 10^3/uL [place] # (Auto) 0.80 (0.00-1.50) 10^3/uL Eos # (Auto) 0.09 (0.00-1.50) 10^3/uL Baso # (Auto) 0.07 (0.00-0.50) 10^3/uL Immature Gran # (Auto) 0.02 (0.00-0.49) 10^3/uL Sodium 142 (136-145) mEq/L Potassium 3.9 (3.5-5.0) mEq/L Chloride 103 (98-106) mEq/L Carbon Dioxide 26 (21-32) mmol/L BUN 14 (7-18) mg/dL Creatinine 0.8 (0.6-1.0) mg/dL Est Cr Clr Drug Dosing 84.01 mL/min Estimated GFR (MDRD) > 60 (>=60) mL/min Glucose 82 (75-99) mg/dL Calcium 8.9 (8.4-10.1) mg/dL Total Bilirubin 0.4 (0.0-1.0) mg/dL AST 16 (15-37) U/L ALT 25 (12-78) U/L Alkaline Phosphatase 73 (46-116) U/L C-Reactive Protein < 0.2 L (0.2-0.8) mg/dL Total Protein 7.1 (6.4-8.2) g/dL Albumin 4.0 (3.4-5.0) g/dL Urine Color Yellow (YELLOW) Urine Appearance Clear (CLEAR) Urine pH 5.5 (4.5-8.0) Ur Specific [place] >= 1.030 H (1.003-1.020) Urine Protein Negative (NEGATIVE) mg/dL Urine Glucose (UA) Negative (NEGATIVE) mg/dL Urine Ketones Trace H (NEGATIVE) mg/dL Urine Occult Blood Moderate H (NEGATIVE) Urine Nitrite Negative (NEGATIVE) Urine Bilirubin Negative (NEGATIVE) Urine Urobilinogen 0.2 (0.2-1.0) EU/dL Ur Leukocyte Esterase Negative (NEGATIVE) Urine RBC 5-10 H (0-5) /HPF Urine WBC 0-5 (0-5) /HPF Ur Squamous Epith Cells Few H (NOT SEEN) /HPF Meds: Medications Discontinued Medications Generic Name Dose Route Start Last Admin Trade Name Freq PRN Reason Stop Dose Admin Ketorolac Tromethamine 60 mg 04/04/21 13:04 04/04/21 13:09 Ketorolac 60 Mg/2 Ml Sdv IM 04/04/21 13:05 60 mg ONETIME ONE Administration Orphenadrine Citrate 60 mg 04/04/21 15:18 Orphenadrine 60 Mg/2 Ml Inj IM 04/04/21 15:19 ONETIME ONE Departure - Departure Time of Disposition: 15:21 Disposition: Home, Self-Care 01 Clinical Impression: Acute flank pain, Lesion of liver greater than 1 cm in diameter with no liver disease or history of malignant neoplasm - Discharge Information *PRESCRIPTION DRUG MONITORING PROGRAM REVIEWED*: No *COPY OF PRESCRIPTION DRUG MONITORING REPORT IN PATIENT MELL: No Forms: ED Department Discharge Additional Instructions: 1) Toradol 10mg every 8 hours as needed for pain 2) [place] 5/325 every 4-6 hours as needed for break thru pain 3) Flexeril 10mg every 8 hours as needed for back spasms 4) Push water intake 5) Follow up with primary this week for recheck and to be set up for further imaging of liver lesion. 6) Return to ED if pain worsens, fevers, or any concerns at all 7) Rest today 8) May apply heat to area as well for relief. Sepsis Event Note (ED) - Evaluation Sepsis Screening Result: No Definite Risk - Focused Exam Vital Signs: Vital Signs Temp Pulse Resp BP Pulse Ox 04/04/21 12:40 98 F 113 H 16 150/90 H 96 - Problem List & Annotations (1) Acute flank pain SNOMED Code(s): 964028864, 434498472 Code(s): R10.9 - UNSPECIFIED ABDOMINAL PAIN Status: Acute (2) Lesion of liver greater than 1 cm in diameter with no liver disease or history of malignant neoplasm SNOMED Code(s): 637892022, 996807513 Code(s): K76.9 - LIVER DISEASE, UNSPECIFIED Status: Acute - My Orders Last 24 Hours: My Active Orders 04/04/21 13:26 Abdomen Pelvis wo Cont [CT] Stat 04/04/21 15:17 AMYLASE [CHEM] Stat LIPASE [CHEM] Stat - Assessment/Plan Last 24 Hours: My Active Orders 04/04/21 13:26 Abdomen Pelvis wo Cont [CT] Stat 04/04/21 15:17 AMYLASE [CHEM] Stat LIPASE [CHEM] Stat Plan: Camille was given 60mg of Toradol IM upon presentation. She did feel it helped significantly;however the pain started to slowly return in the last 1/[address] of the abdomen/pelvis did rule out any acute pathology. No stones, hyd ronephrosis seen. Incidentally, 2.4 cm hypodense lesion of the left hepatic lobe was seen. Radiologist did recommend follow up CT or MRI with liver mass protocol as an outpatient. Will have Camille follow up with primary provider this week to see how she is doing and to be set up for further imaging. Patient will be given 60mg of Norflex prior to discharge. Prescriptions written for pain control. Discussed with Camille if she felt she would be fine going home which she was in agreement with. Will return if pain worsens or any concerns.
[2021-04-04 13:18] LABS: CHLORIDE,CL 103 mEq/L (98-106); SODIUM,NA 142 mEq/L (136-145)
[2021-04-04] MEDS ORDERED: Orphenadrine 60 MG/2 ML Inj IM ONE (15:18)
== END 2021-04-04 15:35 | disposition home or self-care (01) ==
LOC: CC.ED 12:35
DX: K76.9 Liver disease, unspecified (principal); K21.9 Gastro-esophageal reflux disease without esophagitis; Z72.0 Tobacco use; Z79.899 Other long term (current) drug therapy; Z88.0 Allergy status to penicillin
CPT/HCPCS: 36415; 74176; 80053; 81001; 82150; 83690; 85025; 86140; 96372; 99284; J1885; J2360

== ENCOUNTER 2023-07-06 18:25 | Emergency (ER) | payer OTHER ==
[2023-07-06] MEDS ORDERED: Propranolol 10 MG Tab PO STA (18:39)
[2023-07-06 19:00] VITALS: PULSE 95
[2023-07-06 21:59] VITALS: BP 145/89
== END 2023-07-06 19:05 | disposition home or self-care (01) ==
LOC: CC.ED 18:25
DX: F41.1 Generalized anxiety disorder (principal); I10 Essential (primary) hypertension; J45.909 Unspecified asthma, uncomplicated; Z88.0 Allergy status to penicillin; Z79.899 Other long term (current) drug therapy
CPT/HCPCS: 93005; 93010; 99283; 99284; A9270-GY

== ENCOUNTER 2024-02-29 09:10 | Emergency (ER) | payer OTHER ==
[2024-02-29 09:28] LABS: APPEARANCE,URINE CLOUDY (CLEAR); BILIRUBIN,URINE NEGATIVE (NEGATIVE); COLOR,URINE YELLOW (YELLOW); GLUCOSE,URINE NEGATIVE (NEGATIVE); KETONES,URINE NEGATIVE (NEGATIVE); LEUKOCYTE ESTERASE,URINE MODERATE (NEGATIVE); NITRITE,URINE NEGATIVE (NEGATIVE); OCCULT BLOOD,URINE LARGE (NEGATIVE); PROTEIN,URINE 100 mg/dL (NEGATIVE); UROBILINOGEN,URINE 0.2 EU/dL (0.2-1.0)
[2024-02-29 09:42] LABS: BACTERIA,URINE MODERATE /HPF (NOT SEEN); SQUAMOUS EPITHELIAL CELLS,UR FEW /HPF (NOT SEEN); WBC,URINE PACKED /HPF (0-5)
[2024-02-29] MEDS: cefTRIAXone 1 GM, Lidocaine 1% 2.1 ML IM SCH (09:51)
[2024-02-29 12:27] VITALS: BP 144/95; PULSE 97
== END 2024-02-29 10:12 | disposition home or self-care (01) ==
LOC: CC.ED 09:10
DX: N39.0 Urinary tract infection, site not specified (principal); I10 Essential (primary) hypertension; J45.909 Unspecified asthma, uncomplicated; Z90.49 Acquired absence of other specified parts of digestive tract; Z79.899 Other long term (current) drug therapy; Z88.0 Allergy status to penicillin; Z88.2 Allergy status to sulfonamides; Z88.8 Allergy status to other drugs, medicaments and biological substances
CPT/HCPCS: 81001; 87086; 87088; 87186; 96372; 99283; J0696; J3490

== ENCOUNTER 2024-03-22 08:53 | Emergency (ER) | payer OTHER ==
[2024-03-22] MEDS: Alum Hydrox/Mag Hydrox/Simeth 30 ML, Lidocaine 2% 15 ML PO ONE (09:16)
[2024-03-22 09:34] LABS: BASOPHILS ABSOLUTE AUTO 0.07 10^3/uL (0.00-0.50); BASOPHILS PERCENT AUTO 0.5 % (0-1); EOSINOPHILS PERCENT AUTO 3.8 % (0-6); HEMATOCRIT 48.6 % (37.0-47.0); HEMOGLOBIN 15.8 g/dL (12.0-16.0); IMMATURE GRAN ABSOLUTE AUTO 0.03 10^3/uL (0.00-0.49); IMMATURE GRAN PERCENT AUTO 0.2 % (0.0-4.9); LYMPHOCYTES ABSOLUTE AUTO 2.74 10^3/uL (0.60-5.00); LYMPHOCYTES PERCENT AUTO 20.7 % (24-44); MEAN CORPUSCULAR HEMOGLOBIN 30.1 pg (27.0-32.0); MEAN CORPUSCULAR HGB CONC 32.5 g/dL (32.0-36.0); MEAN CORPUSCULAR VOLUME 92.6 fL (83.0-97.0); MONOCYTES ABSOLUTE AUTO 1.01 10^3/uL (0.00-1.50); MONOCYTES PERCENT AUTO 7.6 % (0-10); NEUTROPHILS PERCENT AUTO 67.2 % (41-71); PLATELET COUNT,PLT 504 10^3/uL (150-400); RED BLOOD CELL COUNT 5.25 x10^6/uL (4.00-5.50); WHITE BLOOD CELL COUNT,WBC 13.3 10^3/uL (4.0-11.0)
[2024-03-22 09:39] VITALS: BP 145/92; PULSE 118
[2024-03-22 09:39] LABS: COLOR,URINE DARK YELLOW (YELLOW); GLUCOSE,URINE NEGATIVE (NEGATIVE); KETONES,URINE TRACE mg/dL (NEGATIVE); LEUKOCYTE ESTERASE,URINE NEGATIVE (NEGATIVE); NITRITE,URINE NEGATIVE (NEGATIVE); OCCULT BLOOD,URINE MODERATE (NEGATIVE); PH,URINE 5.5 (4.5-8.0); PROTEIN,URINE 100 mg/dL (NEGATIVE); UROBILINOGEN,URINE 0.2 EU/dL (0.2-1.0)
[2024-03-22 09:46] LABS: APPEARANCE,URINE SLIGHTLY CLOUDY (CLEAR)
[2024-03-22 09:47] LABS: BACTERIA,URINE FEW /HPF (NOT SEEN); BILIRUBIN,URINE SMALL (NEGATIVE); MUCUS,URINE MANY /HPF (NOT SEEN); RBC,URINE 0-5 /HPF (0-5); SQUAMOUS EPITHELIAL CELLS,UR MODERATE /HPF (NOT SEEN); WBC,URINE 0-5 /HPF (0-5)
[2024-03-22 09:50] LABS: ALBUMIN 3.9 g/dL (3.4-5.0); BILIRUBIN TOTAL 0.7 mg/dL (0.0-1.0); C-REACTIVE PROTEIN 0.59 mg/dL (<=0.50); CALCIUM 9.3 mg/dL (8.4-10.1); CREATININE 0.8 mg/dL (0.6-1.0); EST CRCL DRUG DOSING (CG) 87.7 mL/min; POTASSIUM,K 4.2 mEq/L (3.5-5.0); PROTEIN TOTAL,TP 7.4 g/dL (6.4-8.2)
[2024-03-22] MEDS: Sodium Chloride 0.9% 1,000 ML IV ONE (10:08)
[2024-03-22] MEDS ORDERED: Iopamidol 755 Mg/ML 100 ML Bottle IVPUSH ONE (10:33)
[2024-03-22] MEDS: Take Home: Acetaminophen/HYDROcodone 325-5 MG, 2 Tab Pack PO ONE (12:33)
[2024-03-22] MEDS: Take Home: Ciprofloxacin 500 MG Tab, 2 Tab Pack PO ONE (12:33)
[2024-03-22] MEDS: Take Home: metroNIDAZOLE 500 MG Tab, 6 Tab Pack PO ONE (12:33)
== END 2024-03-22 12:45 | disposition home or self-care (01) ==
LOC: CC.ED 08:53
DX: A09 Infectious gastroenteritis and colitis, unspecified (principal); I10 Essential (primary) hypertension; Z88.0 Allergy status to penicillin; Z88.2 Allergy status to sulfonamides; Z79.899 Other long term (current) drug therapy; Z90.49 Acquired absence of other specified parts of digestive tract
CPT/HCPCS: 36415; 74177; 80053; 81001; 81025; 83690; 85025; 86140; 96360; 99284; 99284-25; A9270-GY; J7030

== ENCOUNTER → 2024-03-27 | Day surgery (SDC) | payer OTHER ==
[~2024-03-27] MED LIST: Flumazenil 0.1 MG/ML 10 ML MDV ONE; Midazolam 1 MG/ML 2 ML SDV ONE; Propofol 200 MG/20 ML SDV ONE; fentaNYL 50 MCG/ML SDV ONE
[2024-03-27 08:44] LABS: HCG QUALITATIVE,SERUM NEGATIVE (NEGATIVE)
[2024-03-27] MEDS: Lactated Ringers 1,000 ML IV SCH (08:49)
[2024-03-27 11:04] VITALS: BP 153/86; PULSE 78
== END ==
LOC: CC.SDS 08:20
PROVIDERS: ATTEND Family Medicine
DX: K62.1 Rectal polyp (principal); K63.5 Polyp of colon; K52.9 Noninfective gastroenteritis and colitis, unspecified; K63.89 Other specified diseases of intestine; K57.30 Diverticulosis of large intestine without perforation or abscess without bleeding; F17.210 Nicotine dependence, cigarettes, uncomplicated; Z88.0 Allergy status to penicillin; Z88.8 Allergy status to other drugs, medicaments and biological substances; Z79.899 Other long term (current) drug therapy
CPT/HCPCS: 00811; 36415; 84703; J2250; J2704; J3010; J3490; J7120